=== PATIENT | male | born 1990 | race Caucasian/White ===

== ENCOUNTER 2024-11-01 15:40 | Emergency (ER) | payer BC ==
[~2024-11-01] VITALS: Ht 180.3 cm; Wt 144.9 kg
[2024-11-01] MEDS ORDERED: LOSARTAN-HCTZ1 EAC2 PO (16:05)
[2024-11-01 16:14] VITALS: PULSE 99; RESP 18; TEMP 98.2; O2SAT 95
[2024-11-01] MEDS: CLONIDINE HCL 0.1 MG TAB PO ONE (16:24)
[2024-11-01 17:21] VITALS: BP 142/82; PULSE 86; RESP 20
== END 2024-11-01 17:19 | disposition home or self-care (01) ==
LOC: FSED 15:55
DX: I16.0 Hypertensive urgency (principal); I10 Essential (primary) hypertension; R94.31 Abnormal electrocardiogram [ECG] [EKG]
CPT/HCPCS: 80053; 83880; 84484; 85025; 93005; 99284